=== PATIENT | male | born 1960 | race Caucasian/White ===

== ENCOUNTER 2016-06-26 15:12 | Emergency (ER) | payer BC ==
[2016-06-26] MEDS ORDERED: ONDANSETRON 4 MG VIAL ONE (17:52)
[2016-06-26] MEDS ORDERED: MORPHINE 4 MG/ML SYR ONE (17:53)
== END 2016-06-26 19:53 | disposition home or self-care (01) ==
LOC: ER 15:12
DX: N13.2 Hydronephrosis with renal and ureteral calculous obstruction (principal); I10 Essential (primary) hypertension; E11.9 Type 2 diabetes mellitus without complications; Z79.84 Long term (current) use of oral hypoglycemic drugs; Z79.82 Long term (current) use of aspirin; R31.9 Hematuria, unspecified
CPT/HCPCS: 36415; 74176; 80053; 81001; 83690; 85025; 96374; 96375